=== PATIENT | female | born 2000 | race Two or more races ===

== ENCOUNTER 2021-10-05 09:17 | Emergency (ER) | payer MEDICAID ==
[2021-10-05 10:13] LABS: CHLORIDE,CL 104 mEq/L (98-106); SODIUM,NA 141 mEq/L (136-145)
== END 2021-10-05 13:30 | disposition home or self-care (01) ==
LOC: CC.ED 09:17
DX: O23.02 Infections of kidney in pregnancy, second trimester (principal); N13.6 Pyonephrosis; Z3A.20 20 weeks gestation of pregnancy
CPT/HCPCS: 36415; 76705; 80053; 81001; 81025; 85025; 86140; 87086; 99284; 99284-25